=== PATIENT | female | born 1955 | race Native Hawaiian/Other Pacific Islander ===

== ENCOUNTER 2016-12-24 08:15 | Outpatient (CLI) | payer OTHER ==
[~2016-12-24 08:15] MED LIST: ALBUTEROL0.083 % IN; ANAS1TAB PO; ATROVENT HFA17 MCG IN; BENZONATATE100 MG PO; BENZONATATE200 MG PO; FLUT0.05 NAS; GABA100C2 PO; LEVAQUIN500 MG OR; LEVO0.1T6 PO; LEVO500T PO; MEDROL DOSEPAK4 MG OR; MIRAPEX0.25 MG OR; MUCINEX600 MG OR; OMEP20CA PO; ROSU10TA PO; SINGULAIR10 MG PO; VENL75CA2 PO
[2016-12-24 09:12] LABS: PLATELET COUNT 254 K/uL (152-353)
[2016-12-24 09:49] LABS: POTASSIUM 3.3 mmol/L (3.6-5.2); SODIUM 135 mmol/L (136-145)
== END 2016-12-24 19:06 | disposition home or self-care (01) ==
LOC: LABW 08:15
PROVIDERS: Podiatrist
DX: Z01.812 Encounter for preprocedural laboratory examination (principal); R71.8 Other abnormality of red blood cells
CPT/HCPCS: 36415; 80053; 85027

== ENCOUNTER 2018-03-05 08:29 | Outpatient (CLI) | payer OTHER ==
[2018-03-05 14:39] LABS: PLATELET COUNT 288 K/uL (152-353)
== END 2018-03-05 22:24 | disposition home or self-care (01) ==
LOC: LABW 08:29
PROVIDERS: Internal Medicine
DX: J44.9 Chronic obstructive pulmonary disease, unspecified (principal); E03.8 Other specified hypothyroidism
CPT/HCPCS: 36415; 80053; 80061; 81000; 84439; 84443; 85027

== ENCOUNTER 2019-03-07 12:50 | Outpatient (CLI) | payer OTHER | END 2019-03-07 19:41 | disposition home or self-care (01) | LOC: RAD 12:50 | DX: M25.511 Pain in right shoulder (principal) ==

== ENCOUNTER 2019-05-16 08:07 | Outpatient (CLI) | payer OTHER ==
[2019-05-16 08:39] LABS: PLATELET COUNT 276 K/uL (152-353)
[2019-05-16 08:59] LABS: POTASSIUM 4.1 mmol/L (3.6-5.2)
== END 2019-05-16 23:33 | disposition home or self-care (01) ==
LOC: LABW 08:07
PROVIDERS: Internal Medicine
DX: E78.00 Pure hypercholesterolemia, unspecified (principal); E55.9 Vitamin D deficiency, unspecified
CPT/HCPCS: 36415; 80053; 80061; 81000; 82306; 84439; 84443; 85027

== ENCOUNTER 2020-05-21 14:10 | Outpatient (CLI) | payer OTHER | END 2020-05-21 21:51 | disposition home or self-care (01) | LOC: LABW 14:10 | DX: M79.671 Pain in right foot (principal) | CPT/HCPCS: 36415; 82306 ==

== ENCOUNTER 2020-08-13 09:44 | Outpatient (CLI) | payer OTHER ==
[2020-08-13 10:05] LABS: PLATELET COUNT 252 K/uL (152-353)
== END 2020-08-13 23:30 | disposition home or self-care (01) ==
LOC: LABW 09:44
PROVIDERS: Internal Medicine
DX: E03.9 Hypothyroidism, unspecified (principal); E78.5 Hyperlipidemia, unspecified; E55.9 Vitamin D deficiency, unspecified; G25.81 Restless legs syndrome
CPT/HCPCS: 36415; 80053; 80061; 81000; 82306; 83540; 83735; 84439; 84443; 85027

== ENCOUNTER 2021-01-16 14:32 | Outpatient (CLI) | payer OTHER | END 2021-01-16 21:15 | disposition home or self-care (01) | LOC: INF 14:32 | PROVIDERS: ATTEND Internal Medicine | DX: Z23 Encounter for immunization (principal) | CPT/HCPCS: 96372 ==

== ENCOUNTER 2021-02-12 09:21 | Outpatient (CLI) | payer OTHER | END 2021-02-12 20:04 | disposition home or self-care (01) | LOC: INF 09:21 | PROVIDERS: ATTEND Internal Medicine | DX: Z23 Encounter for immunization (principal) | CPT/HCPCS: 96372 ==

== ENCOUNTER 2021-05-28 07:51 | Outpatient (CLI) | payer OTHER | END 2021-05-28 21:47 | disposition home or self-care (01) | LOC: RAD 07:51 | PROVIDERS: ATTEND Internal Medicine | DX: Z13.820 Encounter for screening for osteoporosis (principal); Z12.31 Encounter for screening mammogram for malignant neoplasm of breast; N95.8 Other specified menopausal and perimenopausal disorders; Z85.3 Personal history of malignant neoplasm of breast | CPT/HCPCS: G0279 ==

== ENCOUNTER 2021-07-03 08:27 | Outpatient (CLI) | payer OTHER ==
[2021-07-03 08:44] LABS: PLATELET COUNT 251 K/uL (152-353)
[2021-07-03 13:00] LABS: LDL CHOLESTEROL 175.7 mg/dL (0-99*)
== END 2021-07-03 21:07 | disposition home or self-care (01) ==
LOC: LABW 08:27
PROVIDERS: ATTEND Internal Medicine
DX: Z00.00 Encounter for general adult medical examination without abnormal findings (principal); E03.8 Other specified hypothyroidism; Z79.899 Other long term (current) drug therapy; Z13.820 Encounter for screening for osteoporosis; E55.9 Vitamin D deficiency, unspecified
CPT/HCPCS: 36415; 80053; 80061; 81000; 82306; 84439; 84443; 85027

== ENCOUNTER 2021-10-14 13:39 | Outpatient (CLI) | payer OTHER ==
[2021-10-14 14:14] LABS: POTASSIUM 4.5 mmol/L (3.6-5.2)
== END 2021-10-14 21:03 | disposition home or self-care (01) ==
LOC: LAB 13:39
PROVIDERS: ATTEND Internal Medicine
DX: E78.49 Other hyperlipidemia (principal); E03.8 Other specified hypothyroidism; E55.9 Vitamin D deficiency, unspecified
CPT/HCPCS: 80053; 80061; 82306; 84439; 84443

== ENCOUNTER 2021-10-22 08:49 | Outpatient (CLI) | payer OTHER | END 2021-10-22 18:56 | disposition home or self-care (01) | LOC: US 08:49 | PROVIDERS: ATTEND Internal Medicine | DX: R79.89 Other specified abnormal findings of blood chemistry (principal) ==

== ENCOUNTER 2022-02-26 18:06 | Outpatient (CLI) | payer OTHER ==
[2022-02-26 19:41] LABS: PLATELET COUNT 242 K/uL (152-353)
[2022-02-26 19:46] LABS: POTASSIUM 4.3 mmol/L (3.6-5.2)
== END 2022-02-26 21:38 | disposition home or self-care (01) ==
LOC: LAB 18:06
PROVIDERS: ATTEND Internal Medicine
DX: J44.9 Chronic obstructive pulmonary disease, unspecified (principal); E78.49 Other hyperlipidemia; E03.8 Other specified hypothyroidism; E55.9 Vitamin D deficiency, unspecified
CPT/HCPCS: 80053; 80061; 81000; 82306; 84439; 84443; 85027

== ENCOUNTER 2022-08-05 14:56 | Outpatient (CLI) | payer OTHER ==
[2022-08-05 15:45] LABS: POTASSIUM 4.1 mmol/L (3.6-5.2)
== END 2022-08-05 20:25 | disposition home or self-care (01) ==
LOC: LAB 14:56
PROVIDERS: ATTEND Internal Medicine
DX: E78.49 Other hyperlipidemia (principal); E03.8 Other specified hypothyroidism
CPT/HCPCS: 80053; 80061; 84439; 84443

== ENCOUNTER 2023-01-15 12:12 | Outpatient (CLI) | payer OTHER ==
[2023-01-15 12:44] LABS: PLATELET COUNT 235 K/uL (152-353)
[2023-01-15 13:07] LABS: POTASSIUM 4.6 mmol/L (3.6-5.2)
== END 2023-01-15 19:19 | disposition home or self-care (01) ==
LOC: LAB 12:12
PROVIDERS: ATTEND Internal Medicine
DX: E78.49 Other hyperlipidemia (principal); E03.8 Other specified hypothyroidism; J44.9 Chronic obstructive pulmonary disease, unspecified
CPT/HCPCS: 80053; 80061; 81002; 84439; 84443; 85027

== ENCOUNTER 2023-03-18 12:47 | Outpatient (CLI) | payer OTHER ==
[2023-03-18 13:06] LABS: POTASSIUM 4.2 mmol/L (3.6-5.2)
[2023-03-18 13:12] LABS: PLATELET COUNT 238 K/uL (152-353)
== END 2023-03-18 19:12 | disposition home or self-care (01) ==
LOC: LAB 12:47
PROVIDERS: ATTEND Internal Medicine
DX: R51.9 Headache, unspecified (principal)
CPT/HCPCS: 80048; 85027; 85652

== ENCOUNTER 2023-03-19 08:34 | Outpatient (CLI) | payer OTHER | END 2023-03-19 19:04 | disposition home or self-care (01) | LOC: MRI 08:34 | PROVIDERS: ATTEND Internal Medicine | DX: R51.9 Headache, unspecified (principal) | CPT/HCPCS: A9576 ==

== ENCOUNTER 2023-04-24 11:45 | Outpatient (CLI) | payer OTHER ==
[2023-04-24 13:50] LABS: PLATELET COUNT 234 K/uL (152-353)
[2023-04-24 14:10] LABS: POTASSIUM 4.2 mmol/L (3.6-5.2)
== END 2023-04-24 19:23 | disposition home or self-care (01) ==
LOC: LAB 11:45
PROVIDERS: ATTEND Internal Medicine
DX: I25.118 Atherosclerotic heart disease of native coronary artery with other forms of angina pectoris (principal); E03.8 Other specified hypothyroidism; R70.0 Elevated erythrocyte sedimentation rate; E55.9 Vitamin D deficiency, unspecified
CPT/HCPCS: 80053; 80061; 82306; 84439; 84443; 85027; 85652

== ENCOUNTER 2024-01-04 14:10 | Outpatient (CLI) | payer OTHER ==
[2024-01-04 14:28] LABS: PLATELET COUNT 226 K/uL (152-353)
[2024-01-04 14:46] LABS: POTASSIUM 4.2 mmol/L (3.6-5.2)
== END 2024-01-04 19:22 | disposition home or self-care (01) ==
LOC: LAB 14:10
PROVIDERS: ATTEND Internal Medicine
DX: E03.8 Other specified hypothyroidism (principal); I25.118 Atherosclerotic heart disease of native coronary artery with other forms of angina pectoris
CPT/HCPCS: 80053; 80061; 84439; 84443; 85027